=== PATIENT | female | born 1960 | race Two or more races ===

== ENCOUNTER 2020-07-05 13:14 | Emergency (ER) | payer OTHER ==
[~2020-07-05] VITALS: Ht 157.5 cm; Wt 73.9 kg
--- NOTE | 2020-07-05 14:26 | NUR ---
BIBS SENT FROM URGENT CARE. TO ER BED 12. AAOX4. NOT IN RESP DISTRESS. AMBULATORY. CAME IN FOR DIZZYNESS SINCE WEDNESDAY AND NUMBNESS ON HER L SIDE SINCE WEDNESDAY. PT REPORTS THAT SHE HAD THE COVID VACCINE ON WEDNESDAY WHEN SHE STARTED FEEL BAD. NO NEURO DEFICIT NOTED. MD WAS AT THE BEDSIDE FOR EVAL. ORDERS RECEIVED, NOTED AND CARRIED OUT.
[2020-07-05] MEDS ORDERED: MECLIZINE HCL 25 MG TABLET ONE (15:23)
[2020-07-05] MEDS ORDERED: METOCLOPRAMIDE HCL 10 MG/2 ML VIAL ONE (15:23)
[2020-07-05] MEDS ORDERED: MECLIZINE HCL 12.5 MG TABLET PO ONE (15:30)
[2020-07-05] MEDS ORDERED: METOCLOPRAMIDE HCL 10 MG/2 ML VIAL IV ONE (15:30)
[2020-07-05] MEDS ORDERED: IV NS 0.9% 500 ML BAG IV ONE (15:30)
[2020-07-05 15:34] LABS: BASOPHILS % (AUTO) 0.6 % (0.0-2.0); EOSINOPHILS % (AUTO) 6.6 % (0.0-6.0); HEMATOCRIT 42 % (33-45); HEMOGLOBIN 13.9 g/dL (11.5-14.8); LYMPHOCYTES # (AUTO) 1.9 /CMM (0.8-4.8); LYMPHOCYTES % (AUTO) 31.6 % (20.0-44.0); MEAN CORPUSCULAR HGB CONC 33 g/dl (31.0-36.0); MEAN CORPUSCULAR VOLUME 88 fL (82-100); MONOCYTES # (AUTO) 0.4 /CMM (0.1-1.30); MONOCYTES % (AUTO) 6.2 % (2.0-12.0); NEUTROPHILS # (AUTO) 3.3 /CMM (1.8-8.9); PLATELET COUNT (AUTO) 298 /CMM (150-450); RED BLOOD CELL COUNT(AUTO) 4.77 MIL/uL (4.0-5.2)
--- NOTE | 2020-07-05 16:01 | NUR ---
IV LINE STARTED ON R WRSIT 20G. BLOOD DRAWN AND SENT TO LAB
[2020-07-05 16:16] LABS: BILIRUBIN,TOTAL 0.5 mg/dL (0.2-1.0); POTASSIUM 3.9 mmol/L (3.5-5.1); TOTAL PROTEIN, SERUM 7.7 g/dL (6.4-8.2)
[2020-07-05 16:17] LABS: BILIRUBIN,DIRECT 0.1 mg/dL (0.0-0.2)
[2020-07-05 16:18] LABS: ALBUMIN 4.2 g/dL (3.4-5.0); CREATININE 0.7 mg/dL (0.6-1.3)
[2020-07-05] MEDS ORDERED: MECL-159 PO (16:56)
--- NOTE | 2020-07-05 17:16 | NUR ---
Patient discharged to home in stable condition. Written and verbal after care instructions given. Patient verbalizes understanding of instruction.IV removed. Catheter intact and site benign. Pressure and 4x4 applied to site. No bleeding noted. Pt ambulatory with a steady gait
[2020-07-05 17:24] VITALS: BP 120/63
== END 2020-07-05 17:24 | disposition home or self-care (01) ==
LOC: ER 13:18
DX: R42 Dizziness and giddiness (principal); I10 Essential (primary) hypertension; M06.9 Rheumatoid arthritis, unspecified; Z88.2 Allergy status to sulfonamides
CPT/HCPCS: 36415; 70450; 80048; 80076; 85025; 93005; 96361; 96374; 99285; J2765; J8597; J7040